=== PATIENT | male | born 1950 | race Caucasian/White ===

== ENCOUNTER 2022-11-26 10:20 | Outpatient (CLI) | payer OTHER, MEDICARE, SELFPAY | END 2022-11-26 10:21 | disposition home or self-care (01) | PROVIDERS: PCP Family Medicine; Visit Provider Family Medicine | DX: Z00.00 Encounter for general adult medical examination without abnormal findings (principal); I10 Essential (primary) hypertension; Z13.0 Encounter for screening for diseases of the blood and blood-forming organs and certain disorders involving the immune mechanism; Z13.6 Encounter for screening for cardiovascular disorders | CPT/HCPCS: 80048; 80061 ==

== ENCOUNTER 2023-10-24 14:03 | Outpatient (CLI) | payer OTHER, MEDICARE, SELFPAY ==
--- OUTSIDE RECORDS SUMMARY | 2023-10-24 14:06 | XMS_ITS | Clinical Summary ---
Author Organization [employer] [facility] Address [place], [place] [address] Care Team Providers Care Belt Molder Name Role Phone Pcp, No Primary Care Provider Unavailabl e Immunizations Name Administration Dates Next Due COVID-19 Vaccine Spikevax (M oderna 50mcg/0.5mL) 12YO+ [id number] Formula PF 05/06/2023 Influenza, Inactivated AIIV4 (Age 65+ Years) Preserv Free 05/06/2023 Social History Tobacco Use Types Packs/Day Years Used Date Smoking Tobacco: Never Assessed Social Connections Answer Date Recorded Frequency of Communication with Friends and Fami ly Not on file 08/05/2023 Sex and Gender Information Value Date Recorded Sex Assigned at Not on file Gender Identity Not on file Sexual Orientation Not on file Plan of Treatment Health Maintenance Due Date Last Done Comments Tdap 1960 Depression screening for age 12+ 1961 BMI (ht and wt on same day) for age 18+ 1967 Hepatitis C screening for ag e 18-79 1967 Tetanus booster 1969 Colonoscopy through age 75 1994 Lipids for age 45-75 1994 Zoster (shingles) series for age 50+ (1 of 2) 1999 Medicare Wellness for age 65+ 2014 Pneumococcal series for age 65+ (1 of 1 - PCV) 2014 Influenza for age 65+ 01/22/2024 05/06/2023 COVID-19 vaccine series Completed 05/06/20 23, 03/23/2022, 03/13/2021, Additional history exists Care Teams Belt Molder Relationship Specialty Start Date End Date Pcp, No . PCP - General 05/06/23
== END 2023-10-24 14:04 | disposition home or self-care (01) ==
PROVIDERS: PCP Family Medicine; Visit Provider Family Medicine
DX: R63.4 Abnormal weight loss (principal); Z12.5 Encounter for screening for malignant neoplasm of prostate; Z13.29 Encounter for screening for other suspected endocrine disorder
CPT/HCPCS: 80076; 84443; G0103

== ENCOUNTER 2024-10-05 11:22 | Outpatient (CLI) | payer OTHER, MEDICARE, SELFPAY | END 2024-10-05 11:23 | disposition home or self-care (01) | PROVIDERS: PCP Family Medicine; Visit Provider Family Medicine | DX: I10 Essential (primary) hypertension (principal); R63.4 Abnormal weight loss; R53.83 Other fatigue; Z12.5 Encounter for screening for malignant neoplasm of prostate; Z13.21 Encounter for screening for nutritional disorder | CPT/HCPCS: 80053; 82607; 84443; G0103 ==

== ENCOUNTER 2025-01-03 19:25 | Emergency (ER) | payer OTHER, SELFPAY ==
--- OUTSIDE RECORDS SUMMARY | 2024-08-08 10:00 | XMS_ITS ---
Author Organization [facility] Address [address] [place] [address] Care Team Providers Care Environmental Protection Economist Name Role Phone Rishi aKur Primary Care Provider Bharti Stewart Ma Unavailable [phone] REASON FOR VISIT in-trial SHYLA Encounters Encounter Location Date Provider Diagnosis [facility] [address] [place] [address] 08/08/2024 Bharti King Plan Of Treatment No Information Progress Notes * Igor CRESPO KDOB: [birth year] (74 yo M)Acc No.[id number]:08/08/2024 Patient: Igor Ngo Provider: Harpreet Willard Ma, RASHEED-A :1950 A ge:74 Y S ex:Male Date:08/08/2024 Address:[address] [place], [place] [id number] Pcp:Rishi Kaur Subjective: * Chief Complaints: * i n-trial SHYLA * Electronic signature of AuD. Dee i, Ma on 01/03/2025 at 07:26 PM CDT Sign off status: Pending * Provider: Harpreet Willard Ma, CCC-A Date: 08/08/2024 Generated for Printi ng/Faxing/eTransmitting on: 01/03/2025 07:26 PM CDT
[2025-01-03] VITALS (8 sets, daily range): BP systolic 118–132; BP diastolic 54–66; PULSE 69–90; RESP 16–36; TEMP 36.2; O2SAT 85–88; BMI 23.4
--- OUTSIDE RECORDS SUMMARY | 2025-01-03 19:26 | XMS_ITS | Clinical Summary ---
Author Organization [employer] [facility] Address [address] [place] [id number] Care Team Providers Care Stamping Machine Operator Name Role Phone Pcp, No Primary Care Provider Unavailabl e Immunizations Immunization Administration Dates Next Due COVID-19 VACCINE SPIKEVAX (M ODERNA 50MCG/0.5ML) 12YO+ PFS 05/06/2023 Influenza, Inactivated AIIV4 (Age 65+ Years) Preserv Free 05/06/2023 Social History Tobacco Use Types Packs/Day Years Used Date Smoking Tobacco: Never Assessed Social Connections Answer Date Recorded Frequency of Communication with Friends and Fami ly Not on file 08/05/2023 Sex and Gender Information Value Date Recorded Sex Assigned at Not on file 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 Gender Identity Not on file Sexual Orientation Not on file Plan of Treatment Health Maintenance Due Date Last Done Comments (IA) Tdap 1960 Depression screening for age 12+ 1961 BMI (ht and wt on same day) for age 18+ 1967 Hepatitis C screening for age 18-79 1967 Tetanus booster 1969 Colonoscopy through age 75 1994 Lipids for age 45-75 1994 Pneumococcal series for age 50+ (1 of 1 - PCV) 1999 Zoster (shingles) series for age 50+ (1 of 2) 1999 Medicare Wellness for age 65+ 2014 COVID-19 vaccine series (2023- season) 2024 05/06/2023, 03/23/2022, 03/13/2021, Additional history exists RSV vaccine for adults or (1 - 1-dose 75+ series) 2024 Influenza Vaccine (Season Ended) 2025 05/06/2023 Hepatitis B series for 19+ Aged Out N o longer eligible based on patient's age to complete this topic Insurance MEDICARE ADVANTAGE [address] [id number] Care Teams Stamping Machine Operator Relationship Specialty Start Date End Date Pcp, No . PCP - General 05/06/23
--- OUTSIDE RECORDS SUMMARY | 2025-01-03 19:27 | XMS_ITS | Patient Health Record ---
Author Organization [facility] Address [address] [place] [address] Care Team Providers Care Compliance Representative Dealer Name Role Phone Rishi Kaur Primary Care Provider Bharti Stewart Ma Unavailable [phone] Allergies Allergen (clinical drug ingredient) Drug/Non Drug Allergy documented on EMR Reaction Allergy Type Onset Date Status ibuprofen Ibuprofen Unknown Drug Allergy Active Reason For Referral No Information Medications Medication SIG (Take, Route, Frequency, Duration) Notes Start Date End Date Status Tylenol PRN Active Tamsulosin HCl 0.4 MG Capsule TAKE 1 CAPSULE BY MOUTH EVERY DAY Oral; Duration: 90 Days Active Social History Tobacco Use: Social History Observation Description Date Details (start date - stop date) Current Smoker NA - NA Social History Alcohol Use: Social Info Question Answer Notes Recreational drugs Recreational Drug Use: Yes Drug/Alcohol: Social Info Question Answer Notes AUDIT-C (Standard) Did you have a drink containing alcohol in the past year? Yes How often did you have six or more drinks on one occasion in the past year? 4 or more times a week (4 points) How many drinks did you have on a typical day when you were drinking in the past year? 1 or 2 drinks (0 point) How often did you have a drink containing alcohol in the past year? Daily or almost daily (4 points) Points 8 Interpretation Positive Tobacco Use: Social Info Question Answer Notes Tobacco Control (Standard) Tobacco use: Current smoker How often do you smoke cigarettes? Every day How many cigarettes a day do you smoke? 21-30 How soon after you wake up do you smoke your first cigarette? 6-30 minutes Are you interested in quitting? Thinking about quitting Problems Problem Type SNOMED Code ICD Code Onset Dates Problem Status W/U Status Risk Notes Problem Mass in head or neck (184105039) Mass of floor of mouth (784.2) Active confirmed Problem Sensorineural hearing loss, bilateral (539475525) Bilateral sensorineural hearing loss (H90.3) Active confirmed Problem Infective otitis externa (52818475) Chronic diffuse otitis externa of left ear (H60.312) Active confirmed Problem Infective otitis externa (18076888) Otitis externa, chronic infective (H60.399) Active confirmed Problem Abnormal auditory perception (70503883) Other abnormal auditory perceptions, bilateral (H93.293) Active confirmed Encounters Encounter Location Date Provider Diagnosis [facility] [address] [address] [address] 03/20/2024 Danyi Ma Bilateral sensorineu ral hearing loss H90.3 [facility] [address] [facility] [address] [place] [phone] 05/25/2024 Danyi Ma Bilateral sensorineu ral hearing loss H90.3 [facility] [address] [facility] [address] [place] [phone] 06/13/2024 Danyi Ma Bilateral sensorineu ral hearing loss H90.3 [facility] [address] [facility] [address] [place] [phone] 07/04/2024 Danyi Ma Bilateral sensorineu ral hearing loss H90.3 [facility] [address] [address] 08/15/2024 Danyi Ma Bilateral sensorineu ral hearing loss H90.3 Assessments Encounter Date Diagnosis (ICD Code) Assessment Notes Treatment Notes Treatment Clinical Notes Section Notes 03/20/2024 Bilateral sensorineural hearing loss (ICD-10 - H90.3) 05/25/2024 Bilateral sensorineural hearing loss (ICD-10 - H90.3) 06/13/2024 Bilateral sensorineural hearing loss (ICD-10 - H90.3) 07/04/2024 Bilateral sensorineural hearing loss (ICD-10 - H90.3) 08/15/2024 Bilateral sensorineural hearing loss (ICD-10 - H90.3) Plan Of Treatment No Information Insurance Providers Payer Name Payer Address Payer Phone Subscriber Number Group Number Insured Name Patient Relationship to Insured Coverage Start Date Coverage End Date [employer] [address] [place] [id number] Igor Antunez Self - patient is the insured Medical (General) History Medical History History ICD Code mouth cancer Surgical History Surgery Date(Month/Year) mouth cancer 2003
[2025-01-03] MEDS: 0.9 % SODIUM CHLORIDE 500 ML 500 ML IV (19:44)
--- NOTE | 2025-01-03 19:47 | ED_ITS ---
HPI - General Adult General Date Seen: 01/03/25 Chief complaint: Fall/Minor Trauma Stated complaint: fall Time Seen by Provider: 01/03/25 19:26 History of Present Illness HPI narrative: Patient is a 74-year-old brought in by EMS. He was out checking his pasture a couple of hours ago, and while there was pinned between his horses hind quarters and a wire fence. He isn't exactly sure whether the horse and bumped into him, kicked him, or just sort of crushed him. He does denied losing consciousness and denies any head pain. He does have neck pain, and says that right after the incident if felt like he could not move his arms or legs. He says he was afraid he was going to suffocate because he was face down in the dirt. Shortly thereafter he was able to move, but did not feel he was able to walk. He says he would get onto his feet and then feel too weak and go down onto his hands and knees. He crawled approximately 1/2 mi back to his house which is why his transport is a couple of hours after the actual accident. Now, he says that his strength seems fairly normal with the exception of his left hand which he says he cannot move very well. He also complains of fairly severe pain in his left hip, but says it feels like ?nerve pain. He is moving the hip without difficulty and says it does not hurt to move it. He is not anticoagulated, smokes a pack a day, denies any other significant medical history. In a computer he is noted have a history of hypertension, COPD, BPH. He significantly denies any chest pain or tenderness, difficulty breathing, abdominal pain or back pain. Related Data Previous Rx's ?Medication ?Instructions ?Recorded mirtazapine 15 mg tablet 15 mg PO QHS #30 tabs Allergies Allergy/AdvReac Type Severity Reaction Status Date / Time ibuprofen Allergy Unknown Verified 01/03/25 19:59 Review of Systems Status of ROS: Reports: 10 or more systems reviewed and unremarkable except as noted in History and below [facility] Medical History History of mouth cancer ?Z85.819 - Personal history of malignant neoplasm of unspecified site of lip, oral cavity, and pharynx (ICD-10) Surgical History Status post open reduction and internal fixation (ORIF) of fracture ?Z98.890 - Other specified postprocedural states (ICD-10) ?Z87.81 - Personal history of (healed) traumatic fracture (ICD-10) History of oral surgery ?Z98.890 - Other specified postprocedural states (ICD-10) Social History What is your current living situation?: I presently have a place to live Problems where you live: no known problems In the past 12 months, utilities in danger of being shut off: no In past 12 months, lack of transportation kept you from medical appts, meetings, work, or getting things needed for daily living: no In the past 12 mos, have been you worried that your food would run out before you had money to buy more?: never true In the past 12 mos, the food you bought just didn't last and you didn't have money to buy more?: never true How many standard drinks containing alcohol do you have on a typical day: 1 or 2 AUDIT-C Alcohol total score: 0 Non-prescribed substance use: denies use How often does anyone, including family, friends and others, physically hurt you : never How often does anyone, including family, friends and others, insult or talk down to you: rarely How often does anyone, including family, friends and others, threaten you with harm: never How often does anyone, including family, friends and others, scream or curse at you: never Health Related Social Needs: Other personal risk factors, not elsewhere classified (Z91.89) Exam Narrative: Exam Narrative: Primary survey: Airway: Patent. Breathing: Nonlabored. Lungs clear. Circulation: Pulses intact. No external bleeding. Disability: GCS 15. Secondary survey: Vital signs reviewed In general, an alert, nontoxic elderly male, looks uncomfortable, kind of writhing on the bed. Head: Normocephalic, atraumatic. Eyes: Pupils are equal reactive. Extraocular movements full. ENT: No facial trauma. Dentition intact. Neck: Cervical collar in place. He has focal midline tenderness in the mid cervical area. I did not visually exam in his posterior neck, there is a little bit of dried blood on his anterior neck but no evidence of significant laceration, hematoma or other swelling. Airways patent. Chest: No visible signs of chest trauma. No tenderness to palpation. Heart regular rate and rhythm. Lungs clear bilaterally. Abdomen: No visible signs of trauma. Soft, nondistended, nontender to palpation. Back: Back was not evaluated at this time given high suspicion of significant cervical injury. Pelvis: Stable, nontender. Extremities: Minor abrasions are noted. As mentioned, he is moving both hips without difficulty, there is no visible bruising or deformity. Neurologic: Alert, conversant, speech fluent, follows commands. He has 5 of 5 strength in bilateral lower extremities and in the right upper extremity. On the left, there is significant weakness in the hand both flexion and extension, wrist flexion extension, and triceps strength. He has 4/5 strength in the biceps. He notes decreased sensation to light touch in the hand but says that is normal more proximally. Skin: Warm and dry, minor abrasions. Const: Vital Signs, click to edit/add: Vital Signs - 24 hr 01/03/25 19:37 01/03/25 19:45 01/03/25 19:48 Temperature 97.1 F L Pulse Rate 89 Pulse Rate [Right Pulse Oximeter] 90 Respiratory Rate 24 36 H 18 Blood Pressure Blood Pressure [Ri ght Upper Arm] 132/54 L Pulse Oximetry 88 88 Oxygen Delivery Me thod Room Air 01/03/25 19:53 Temperature Pulse Rate Pulse Rate [Right Pulse Oximeter] Respiratory Rate 25 H Blood Pressure 132/54 L Blood Pressure [Ri ght Upper Arm] Pulse Oximetry Oxygen Delivery Me thod Course Course ED Course: Patient was evaluated on arrival. Given demonstrable weakness in his left upper extremity and complain of neck pain, I did feel that he would be best served at a trauma center. I was able to talk with Dr. Hudson at [facility], he accepted the patient in transfer and medic control told us that transfer would be here about 10 minutes after decision was made to transfer, so I did not do any imaging he or other tests here. Should have time to do a portable chest x- ray prior to discharge. An EKG was done which showed sinus rhythm, no ST segment changes. By my review, x-ray of the chest shows no pneumothorax or hemothorax. Fast exam shows no fluid in Mederos's pouch or splenorenal views, no pericardial effusion. Paramedics arrived for transport, patient be transported to [facility] ER for further evaluation and treatment. Critical care 30 minutes Vital Signs Vital signs: Initial Vital Signs Pulse Rate 89 01/03/25 19:37 Respiratory Rate 24 01/03/25 19:37 Pulse Oximetry 88 01/03/25 19:37 Vital Signs Pulse Rate 89 01/03/25 19:37 Respiratory Rate 24 01/03/25 19:37 Pulse Oximetry 88 01/03/25 19:37 Temperature 97.1 F L 01/03/25 19:48 Pulse Rate 90 01/03/25 19:48 Respiratory Rate 25 H 01/03/25 19:53 Blood Pressure 132/54 L 01/03/25 19:53 Pulse Oximetry 88 01/03/25 19:48 Oxygen Delivery Method Room Air 01/03/25 19:48 Medications Administered Medications: Generic Name Dose Route Start Last Admin Trade Name Freq PRN Reason Stop Dose Admin Hydromorphone HCl 0.5 mg 01/03/25 19:36 01/03/25 19:44 Hydromorphone 0.5 Mg/0.5 Ml Inj IVP 01/03/25 19:37 0.5 mg ONCE ONE Administration Sodium Chloride 500 mls @ 500 mls/hr 01/03/25 19:36 01/03/25 19:44 0.9 % Sodium Chloride 500 Ml IV 01/03/25 20:35 500 mls/hr .Q1H ONE Administration Discharge Plan Discharge Clinical Impression: Neck pain, Left arm weakness, Trauma Patient Disposition: Xfer Other Prescriptions: No Action mirtazapine 15 mg tablet 15 mg PO QHS Qty: 30 5RF Stand Alone Forms: My[facility] Info Instructions
--- NOTE | 2025-01-03 19:57 | CRLHL7_ITS ---
For Patients: As a result of the Century Cures Act, medical imaging exams and procedure reports are released immediately into your electronic medical record. You may view this report before your referring provider. If you have questions, please contact your health care provider. INDICATION: Fall, chest injury-TODAY TECHNIQUE: Chest radiograph 1 view COMPARISON: 05/19/2021 FINDINGS: Mediastinum: The mediastinum is normal in appearance. The heart silhouette is normal in size and morphology. Lung: Both lungs are unremarkable in appearance. No sign of pleural effusion seen. No pneumothorax is identified. Bone and Soft tissue: Unremarkable for age. IMPRESSION: 1. No acute cardiopulmonary disease is seen. If there is a high clinical index of suspicion for rib injury, dedicated rib series radiographs are recommended. Dictated by: Flako Mcguire MD @ 01/03/2025 20:39:02 (Electronically Signed)
--- NOTE | 2025-01-03 20:00 | ED.NURSE ---
This nurse gave report to [facility] ATTACHING MACHINE OPERATOR - Lillie. Pt is transferring emergently now.
== END 2025-01-03 20:15 | disposition other institution (70) ==
PROVIDERS: Emergency Provider Emergency Medicine; PCP Family Medicine
DX: M54.2 Cervicalgia (principal); R53.1 Weakness; I10 Essential (primary) hypertension; J44.9 Chronic obstructive pulmonary disease, unspecified; F17.210 Nicotine dependence, cigarettes, uncomplicated; N40.0 Benign prostatic hyperplasia without lower urinary tract symptoms
CPT/HCPCS: 71045; 99284; 99291; G0390; J1171; J7030

== ENCOUNTER 2025-01-03 20:08 | Outpatient (CLI) | payer OTHER, SELFPAY | END 2025-01-03 20:09 | disposition home or self-care (01) | PROVIDERS: PCP Family Medicine; Visit Provider Emergency Medicine | DX: S19.9XXA Unspecified injury of neck, initial encounter (principal) | CPT/HCPCS: 71045; 99284; A0425; A0427; G0390; J1171; J7030 ==

== ENCOUNTER 2025-04-22 07:55 | Outpatient (CLI) | payer OTHER, SELFPAY ==
--- NOTE | 2025-04-22 08:15 | CRLHL7_ITS ---
For Patients: As a result of the Century Cures Act, medical imaging exams and procedure reports are released immediately into your electronic medical record. You may view this report before your referring provider. If you have questions, please contact your health care provider. INDICATION: DYSPHAGIA, CERVICAL CRUSH INJURY TECHNIQUE: Modified barium swallow. Fluoroscopic time 2 minutes 40 seconds. FINDINGS/IMPRESSION: Absence of normal epiglottis retroversion. Aspiration occurred with thin barium. Cough reflex present. No obstruction. No diverticulum. Posterior spinal fixation hardware. Dictated by Aleksandar Degroot MD @ 04/22/2025 10:30:37 AM (Electronically Signed)
--- NOTE | 2025-04-22 15:07 | SLP.MBS ---
LOCK FITTER Modified Barium Swallow LOCK FITTER Modified Barium Swallow Eval Start: 04/22/25 14:00 Text: Status: Active Freq: Protocol: Document 04/22/25 14:00 IQRA (Rec: 04/22/25 14:40 [email or web address] [id number]) E-signed By YOUSUF Francis Modified Barium Swallow Evaluation Evaluation Reason for Referral Oropharyngeal dysphagia Medical Diagnosis Cervical crush injury Oropharyngeal dysphagia Treatment Diagnosis Oropharyngeal dysphagia Date of Order 03/29/25 Type of Referral Evaluation Onset of Patient's 01/17/25 Problem Pertinent Medical Patient had a cervical crush injury in December and was History hospitalized for about 5 weeks. He had a FEES and MBSS completed during hospitalization with profound oropharyngeal dysphagia and had a FT placed. Patient does report issues with swallowing prior to his accident and suspect a baseline dysphagia that was exacerbated by his injury. Hearing Status Bilateral hearing aides Vision Status Glasses Subjective/Pain Patient has been participating in outpatient speech Comment therapy for oropharyngeal exercise program. He has been doing po trials during therapy (thin, pudding, soft solids). Assessment/ Jasvir Antunez is a 74-year-old male with a recent Impressions cervical crush injury with surgery and 5 week hospitalization course. He left the hospital with profound dysphagia and a PEG for nutrition/hydration. He has been participating in outpatient speech therapy 2x/week for the past 5 weeks. A video swallow study was completed per provider orders. Under fluoroscopy, patient presents with moderate oropharyngeal dysphagia. Oral phase deficits include premature pharyngeal entry , oral residue along tongue that clears with 2-3 swallows. Pharyngeal phase deficits include reduced base of tongue retraction, reduced hyolaryngeal elevation, reduced epiglottic inversion and pharyngeal residue in vallecualae, posterior pharyngeal wall and pyriform sinus. There was penetration and aspiration with thin liquids by cup with a cough response. Of note , he does have an omega shaped epiglottis which can be a normal anatomical deviation. An omega-shaped epiglottis can be associated with abnormal movement patterns during swallowing that can become an issue with older adults due to the epiglottic cartilages becoming less elastic. Recommend patient begin a Minced & Moist diet with mildly thick liquids. He would be appropriate for free water 30 minutes after meals and excellent oral cares. Safe swallow strategies include upright for all po and remain upright for one hour after meals, small bites at a slow rate, small single sips and multiple swallow per bite. He had difficulty controlling the bolus size and may benefit from a portion control cup with liquids to reduce bolus size to 5ml. Continue with OP therapy 1-2x/week for cognition and oropharyngeal swallow therapy. Goals/Functional Patient and spouse will verbalize understanding of Outcomes results and recommendations. Goal met. Mod Barium Swallow-Lat View Textures Lateral View Food Thin: IDDSI Level 0,Mildly Thick: IDDSI Level 2 ( Presentation Previously [place] Thick),Pureed,Regular Oral Phase Labial Closure No Impairment (WFL) Bolus Formation No Impairment (WFL) Pooling L/R Bolus Formation No Impairment (WFL) under Tongue Bolus Formation No Impairment (WFL) Scattered Loss Mastication Rotary No Impairment (WFL) Chew Mastication Munching No Impairment (WFL) Mastication No Impairment (WFL) Lateralization A/P Lingual Mild Impairment Propulsion Spills A/P Lingual No Impairment (WFL) Propulsion Delay Lingual Movement Minimal Impairment Residue Clearing No Impairment (WFL) Pharyngeal Phase Swallow Response No Impairment (WFL) Delay Base of Tongue Mild Impairment Epiglottic Coverage Moderate Impairment Laryngeal Elevation Moderate Impairment Vallecular Retention Moderate Impairment Clearing Pharyn. Wall Residue Mild Impairment Clearing Piriform Sinus Moderate Impairment Retention Mod Barium Swallow Impressions Summary and Impressions Oral Phase Mild Impairment Impression Oral Phase Summary Lip closure for intraoral bolus containment and tongue control during bolus hold were functional. Bolus preparation and mastication demonstrated functional. Bolus transport/lingual motion was adequate for liquids and solids. There was minimal oral residue collected along oral structures that was cleared after 2-3 swallows. Initiation of the pharyngeal swallow occurred as the bolus head was at the pyriform sinus. Soft palate elevation was adequate with no trace column of contrast or air between the soft palate and the pharyngeal wall. Pharyngeal Phase Moderate Impairment Impression Pharyngeal Phase Laryngeal elevation was reduced. Anterior hyoid Summary excursion demonstrated reduced movement. Epiglottic movement resulted in partial inversion. Laryngeal vestibular closure was reduced, resulting in a small column of air/contrast within the laryngeal vestibule at the height of the swallow. Pharyngeal stripping wave was present and adequate. Pharyngoesophageal segment opening demonstrated minimal distension/minimal duration, with mild obstruction of bolus flow. Tongue base retraction allowed a narrow column of contrast or air between the retracted tongue base and the posterior pharyngeal wall. Pharyngeal residue was about 20% of contrast within or on pharyngeal structures. Barium Swallow Recommendations Diet Dietary Minced and Moist,Mildly Thick Liquids Recommendations Treatment/Strategies Treatment Continue with outpatient therapy and oropharyngeal Recommendation exercise program. Comments Strategy/Precaution Sitting Upright (90 deg),Double Swallow,No Straw, Recommend Liquids from Spoon,Small Bites and Sips Strategy/Precaution Portion control cup vs. spoon sips. Recommend Comments Modified Barium Swallow Education Education Topics Teaching Recipient Patient,Family Teaching Methods Verbal Response to Teaching Verbalize Understanding Therapist Signature/ Carlos Collado MS CCC-LOCK FITTER #[id number] License Number Speech/Language Pathology Billing Units Billing Units Eval Swallow Motion 1 Fluoro
== END 2025-04-22 07:56 | disposition home or self-care (01) ==
PROVIDERS: PCP Family Medicine; Visit Provider Family Medicine
DX: R13.10 Dysphagia, unspecified (principal)
CPT/HCPCS: 74230; 92611